=== PATIENT | male | born 1950 | race Caucasian/White ===

== ENCOUNTER 2023-02-16 23:59 | Emergency (ER) | payer MEDICARE, SELFPAY ==
[2023-02-17 00:29] VITALS: BP 172/100; PULSE 43; RESP 14; TEMP 36.4; O2SAT 98; BMI 26.5
[2023-02-17 03:38] VITALS: BP 172/100; PULSE 43; RESP 14; TEMP 36.4; O2SAT 98
== END 2023-02-17 03:39 | disposition left against medical advice (07) ==
LOC: ER 02-17 00:09
PROVIDERS: Emergency Provider Family Medicine; PCP Nurse Practitioner Family
DX: Z53.21 Procedure and treatment not carried out due to patient leaving prior to being seen by health care provider (principal)

== ENCOUNTER → 2024-05-14 12:47 | Outpatient (BNVA) | payer MEDICARE, SELFPAY | PROVIDERS: PCP Nurse Practitioner Family; Visit Provider Student in an Organized Health Care Education/Training Program | DX: R03.0 Elevated blood-pressure reading, without diagnosis of hypertension (principal) | CPT/HCPCS: 99204 ==

== ENCOUNTER 2024-05-27 05:51 | Day surgery (SDC) | payer MEDICARE, SELFPAY ==
[2024-05-27] VITALS (10 sets, daily range): BP systolic 97–130; BP diastolic 63–79; PULSE 49–66; RESP 12–18; TEMP 36.1–36.4; O2SAT 94–98; BMI 26.4
[2024-05-27] MEDS: sodium chloride 0.9% 1,000 ML 30 ML IV (06:18)
--- NOTE | 2024-05-27 06:49 | ANES.PREANE2 ---
Pre-Anesthetic Assessment Height/Weight: Height 1.78 m Weight 83.461 kg Temp Pulse Resp BP Pulse Ox O2 Del Method 97.6 F 51 L 18 113/79 98 Room Air 05/27/24 06:03 05/27/24 06:03 05/27/24 06:03 05/27/24 06:03 05/27/24 06:03 05/27/24 06:09 Operation Date: 05/27/24 07:00 Proposed Procedures p excision of cyst on back(Not Applicable) - Tom Morfin MD Familial anesthetic complications: None Was Beta Zhane taken within 24 hours: N/A Was Clonidine taken within 24 hours: N/A Last intake: Intake Last Liquid Date 05/26/24 Last Liquid Time 23:30 Last Solid Date 05/26/24 Last Solid Time 18:00 Social No alcohol and No tobacco Exam alert, oriented x 3, clear to auscultation bilaterally and regular rate & rhythm Airway Mallampati: Class II Dentition: full Anesthetic Plan ASA status: 1 Anesthesia: Choice Risk of > 500 ml blood loss (7ml/kg in children): No Medications/Allergies Home Medications ?Medication ?Instructions ?Recorded ?Confirmed ?Last Taken ?Type glucosamine HCl 500 mg tablet 500 mg PO DAILY 05/14/24 05/26/24 05/26/24 History lactobacillus combination no.9 4 4,000 mmu cells PO DAILY 05/14/24 05/26/24 05/26/24 History billion cell capsule (Adult 50 Plus Probiotic) meloxicam 15 mg tablet 15 mg PO QDAY 05/14/24 05/26/24 05/26/24 History omega 9-kix-bvw-fish oil 300 1 cap PO DAILY 05/14/24 05/26/24 Unknown History mg-1,000 mg capsule (Fish Oil) turmeric 400 mg capsule 400 mg PO .QD 05/14/24 05/26/24 05/21/24 History Allergies Allergy/AdvReac Type Severity Reaction Status Date / Time No Known Allergies Allergy Verified 05/26/24 13:45 Current Medications Generic Name Dose Route Start Last Admin Trade Name Freq PRN Reason Stop Dose Admin Sodium Chloride 1,000 mls @ 30 mls/hr 05/27/24 06:00 05/27/24 06:18 Sodium Chloride 0.9% IV 05/28/24 05:59 30 mls/hr .Q24H STANLEY Administration PFSH Anesthesia Family History (Updated 05/14/24 @ 13:01 by JAMIR Baltazar) Father Heart disease Social History (Updated 05/14/24 @ 13:00 by JAMIR Baltazar) Smoking and tobacco/nicotine status: never used tobacco/nicotine Data Anesthesia Cardiac Studies: No Data to Display
--- NOTE | 2024-05-27 06:59 | W.PM.OPSUD ---
Surgery/Procedure H&P Update DATE OF PROCEDURE: May 27, 2024 DATE H&P PERFORMED: 05/14/24 H&P UPDATE INFORMATION: I have reviewed H&P completed within last 30 days, I have examined patient prior to procedure and No changes to prior documentation PLANNED PROCEDURE: Operation Date: 05/27/24 07:00 Proposed Procedures p excision of cyst on back(Not Applicable) - Tom Morfin MD
[2024-05-27] MEDS: ceFAZolin 2,000 mg SDV 2000 MG IVP (07:03)
[2024-05-27] MEDS: lidocaine-epi 1% 20 mL INJ INJECTION (07:20)
--- NOTE | 2024-05-27 07:52 | PM.OP ---
Operative Report Date of procedure: May 27, 2024 Pre-op diagnosis: Dorsal cyst Post-op findings: Dorsal cyst excised with the capsule intact Procedure done: Dorsal soft tissue mass excision Specimens removed/disposition: Dorsal cyst Pathology: Cyst sent to pathology Surgeon: Tom Morfin MD [employer] Psychologist: N/A Estimated blood loss (mL): 5 Complications: N/A Findings: Dorsal cyst excised with its capsule intact Condition: stable Disposition: same day Brief History: 73-year-old male who presented with a dorsal cyst. Discussed risk and benefits and patient agreed to proceed with dorsal soft tissue mass excision. Lesion marked in preop area. Procedure: Patient was brought into the operative room table. General anesthesia was induced. Preoperative antibiotics were administered SCDs were on and working. Patient was laid prone. The upper back was prepped and draped in the usual sterile fashion. Local infiltration was carried out with 1% lidocaine with epinephrine. An elliptical incision was carried out over the soft tissue mass. Tissue dissection was performed with electrocautery down to the subcutaneous tissues. The soft tissue mass resembled a cyst and was removed in its entirety with its capsule and intact. Specimen was passed off and sent to pathology. Adequate hemostasis was achieved using electrocautery. Skin flaps were raised in order to close the wound without tension. Hemostasis was achieved with electrocautery. Multiple interrupted 3-0 Vicryl sutures were placed in the deep dermal layer. Skin was closed using 2-0 nylon in vertical mattress fashion. A sterile dressing was applied. The patient woke up from anesthesia without any complications and was transferred to PACU.
--- NOTE | 2024-05-27 09:15 | ANE.PACU2 ---
Inpatient post-anesthesia follow up: Airway intact: Yes Vital signs: Temperature 97 F Pulse Rate 50 Respiratory Rate 18 Blood Pressure 117/76 Pulse Oximetry 97 Oxygen Delivery Me thod Room Air Oxygen Flow Rate Fraction of Inspir ed Oxygen Hydration adequate: Yes Nausea and vomiting: No Pain level: 1 Mental status: Baseline
== END 2024-05-27 09:14 | disposition home or self-care (01) ==
PROVIDERS: PCP Nurse Practitioner Family; Visit Provider Student in an Organized Health Care Education/Training Program
PROC: (CPT 21931; principal; 2024-05-27 07:00)
DX: L72.0 Epidermal cyst (principal); Z79.899 Other long term (current) drug therapy
CPT/HCPCS: 21931; 88304; J0690; J1100; J2405; J2704; J3010; J3490; J7030

== ENCOUNTER → 2024-06-04 09:01 | Outpatient (BNVA) | payer MEDICARE, SELFPAY | PROVIDERS: PCP Nurse Practitioner Family; Visit Provider Student in an Organized Health Care Education/Training Program | DX: Z98.890 Other specified postprocedural states (principal) | CPT/HCPCS: 99024 ==